=== PATIENT | male | born 1965 | race Caucasian/White ===

== ENCOUNTER 2017-01-28 14:31 | Inpatient (IN) | payer BC ==
[2017-01-15 11:12] LABS: BASOPHILS 0.9 %; BASOPHILS ABSOLUTE 0.06 10/3/uL (0.0-0.16); EOSINOPHILS 2.5 %; EOSINOPHILS ABSOLUTE 0.17 10/3/uL (0.0-0.53); HEMOGLOBIN 14.3 g/dL (13.6-17.8); IMMATURE GRANULOCYTES 0.1 %; IMMATURE GRANULOCYTES ABSOLUTE 0.01 10/3/uL (0.0-0.11); LYMPHOCYTES 22.8 %; LYMPHOCYTES ABSOLUTE 1.54 10/3/uL (0.67-4.30); MANUAL DIFF NO %; MEAN CORPUS HGB CONC 33.3 g/dL (32.0-36.0); MEAN CORPUSCULAR HEMOGLOB 29.3 pg (26.0-34.0); MEAN CORPUSCULAR VOLUME 88.1 fL (80-100); MEAN PLATELET VOLUME 9.7 fL (9.2-13.0); MONOCYTES ABSOLUTE 0.54 10/3/uL (0.21-1.20); NEUTROPHILS 65.7 %; NEUTROPHILS ABSOLUTE 4.44 10/3/uL (2.02-8.40); PLATELET COUNT 263 10/3/uL (150-400); RBC DISTRIBUTION WIDTH 12.4 % (12.0-16.0); RED CELL COUNT 4.88 10/6/uL (4.7-6.1); WHITE BLOOD CELLS 6.8 10/3/uL (4.5-10.5)
[2017-01-15 11:29] LABS: ASCORBIC ACID (UR NOT ORDER) NEG (NEG); BILIRUBIN, URINE NEGATIVE (NEG); KETONE, URINE NEGATIVE (NEG); LEUKOCYTE ESTERASE(NOT OR NEG (NEG); WBC (NOT ORDERED) (RFLEX) < 1 (0-5)
[2017-01-15 11:41] LABS: A/G RATIO 1.2 (0.7-1.9); ALKALINE PHOSPHATASE 66 U/L (45-117); BUN (BLOOD UREA NITROGEN) 10 MG/DL (6-23); CALCIUM, SERUM 9.4 MG/DL (8.5-10.4); CHLORIDE, SERUM 102 MMOL/L (96-112); CO2 (CARBON DIOXIDE) 33 MMOL/L (24-34); CREATININE 1.04 MG/DL (0.70-1.30); GFR AFRICAN AMERICAN 96 ML/MIN (>=60); GFR NON AFRICAN AMERICAN 83 ML/MIN (>=60); GLOBULIN 3.3 G/DL (2.5-4.1); GLUCOSE, SERUM 84 MG/DL (60-99); POTASSIUM, SERUM 3.7 MMOL/L (3.5-5.3); SGOT(AST) 13 U/L (5-40); SGPT(ALT) 19 U/L (5-65); SODIUM, SERUM 138 MMOL/L (135-148); TOTAL BILIRUBIN 0.3 MG/DL (0-1.2); TOTAL PROTEIN 7.3 G/DL (6.0-8.5)
--- NOTE | ~2017-01-28 | OP ---
Record Of Operation [facility] [address] [place]. 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 PROCEDURE: Left total knee revision arthroplasty. SURGEON: Deisre Bah M.D. SURGICAL ENDOSCOPIST: See chart. DETAILS OF PROCEDURE: The patient was taken to the operating room and placed supine on the table in normal fashion without incident. General anesthetic was induced per the anesthesiologist. The patient was carefully positioned, padded, prepped, and draped in normal sterile fashion. Left lower extremity exsanguinated, tourniquet inflated to 350. Sharp dissection was made through the old incision with electrocautery through the fat. Sharp quad splitting approach was carried out. Patella was subluxed. Benign-appearing fluid was sent for cultures and Gram stain. The patella appeared to be significantly malpositioned and was almost completely covered in scar tissue and was very thick measuring right at 30 mm thick with a prosthesis in place. The knee appeared to be in valgus angulation. The femoral component was easily removed with significant lysis behind the distal aspect on both sides. There was some cement around the stem in the canal. The tibial component was somewhat oversized and was easily removed with flexible osteotome. The cement was meticulously debrided. Sequential reamers were used in the femur and tibia to an 18. Intramedullary guides were used to cut the proximal tibia and distal femur. Ruler verified flexion and extension balance. The remaining cuts were made in the distal femur with intramedullary guide with trial components in place. There was excellent medial and lateral balance. The patella was recut with an oscillating saw and cut much thinner down to more normal thickness. I redrilled with the patella drill guide, now with an appropriately sized patella that gave excellent coverage. There was excellent patellar tracking. All surfaces were copiously irrigated with pulsatile lavage. Vacuum-mixed cement premixed with antibiotic was pressurized in a doughy phase in the tibia. The tibial component placed, impacted, and excess cement removed. Cement was pressurized in the femur and placed on the posterior runners of the femoral component, which was placed, impacted, and excess cement removed. The knee was brought out to extension on a trial spacer. Cement was pressurized in the patella. Patellar component placed, held with a clamp, and excess cement removed. Once all cement was hardened, the knee was taken through range of motion. Further extruded cement was removed with a small osteotome. The actual insert was then placed, impacted, checked to be sure it was sound and snug. The knee was closed in a layered fashion over medium ConstaVac drain superolaterally. The wound was dressed sterilely. The patient was awakened and taken to the postanesthesia care unit without incident. COMPLICATIONS: None. Record Of Operation [address] [address] NAME: GARCIA MATHEW : 65 STATUS : ADM IN [facility]#: [id number] AGE: 51 ADM/REG DATE : 01/28/17 MR#: [id number] REPORT SERV DATE: 01/30/17 DICTATED BY: GHAZAL BAH DATE: 01/29/17 REPORT STATUS : Draft TRANSCRIBED BY: PAMELA DATE: 01/29/17 SPECIMENS: Removed components and cultures. ESTIMATED BLOOD LOSS: About 10 mL. WTB/PAMELA Desire Bah M.D. / [id number] CC: Desire Bah M.D.
--- NOTE | ~2017-01-28 | DS ---
Discharge Summary [facility] [address] [place]. 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 CONSULTATIONS: None. PROCEDURES PERFORMED: Left total knee revision arthroplasty, 01/28/2017. PATHOLOGY: Bone, soft tissue, and surgical hardware, left knee arthroplasty-osteopenic bone, surgical hardware (see gross description). No infection or neoplasm. MEDICATIONS: Flexeril 10 mg every eight hours as needed, Roxicodone 15 mg every four to six hours as needed, Ultram 50 mg every six hours as needed, and Coumadin 5 mg daily. CONDITION AT DISCHARGE: Stable. DISPOSITION: The patient was discharged home to be followed by home health care on a regular diet with activities as instructed. He would follow up with me, 02/11/2017. HOSPITAL COURSE: This is a 51-year-old man, who complained of severe constant left knee pain for about six months as well as left hip pain. The patient said he had done well after a left total knee arthroplasty and then developed the pain approximately six months prior to this admission. He said the pain was not due to an accident or injury. He had undergone left total knee arthroplasty [place] [address] Des[place] in [place]. X-rays had revealed failed left total knee arthroplasty. Treatment options were discussed and it was elected to proceed with surgical intervention. He was admitted to the hospital at this time for further evaluation and treatment. Upon admission, he was taken to the operating room, where he underwent the above-mentioned procedure. He tolerated this well and there were no complications. On postop day one, he was resting quietly. He was requesting home health care because he lives alone. LAURA hose were in place. He was evaluated by Occupational and Physical Therapy. On postop day two, he was up sitting in a bedside chair. INR level was 1.8. He was encouraged to mobilize with Physical Therapy. Over the next couple of days, he continued to progress. He said he had not slept well because of pain. He had received IV morphine during the night. Discharge planning continued. On 02/01/2017, he had been ambulating in the cantu. Discharge instructions were given. Due to his improved and stable condition, he was discharged home to be followed by home health care with the above stated instructions. Information collected by: Krystin Cloud I submit the above information as my discharge summary. NICHOLAS/PAMELA Desire Molina M.D. Discharge Summary [address] [address] NAME: GARCIA MATHEW : 65 STATUS : DIS IN PAT#: [id number] AGE: 51 ADM/REG DATE : 01/28/17 MR#: [id number] REPORT SERV DATE: 02/12/17 DICTATED BY: GHAZAL MOLINA DATE: 02/11/17 REPORT STATUS : Draft TRANSCRIBED BY: PAMELA DATE: 02/11/17 / [id number] CC: Desire Molina M.D.
[~2017-01-28 14:31] MED LIST: ULTRAM50 PO; Z100 PO
[2017-01-29 04:52] LABS: HEMOGLOBIN 11.9 g/dL (13.6-17.8)
[2017-01-29 04:56] LABS: INTERNATIONAL NORMAL RATI 1.1 UNITS (-); PROTIME (NOT ORD) 14.5 SEC (12.0-14.5)
[2017-01-29 05:01] LABS: HEMATOCRIT 35.4 % (40.0-51.0)
[2017-01-29 05:06] LABS: BUN (BLOOD UREA NITROGEN) 11 MG/DL (6-23); CALCIUM, SERUM 8.6 MG/DL (8.5-10.4); CHLORIDE, SERUM 104 MMOL/L (96-112); CREATININE 1.06 MG/DL (0.70-1.30); GFR AFRICAN AMERICAN 94 ML/MIN (>=60); GFR NON AFRICAN AMERICAN 81 ML/MIN (>=60); SODIUM, SERUM 138 MMOL/L (135-148)
[2017-01-29 05:10] LABS: CO2 (CARBON DIOXIDE) 28 MMOL/L (24-34); GLUCOSE, SERUM 159 MG/DL (60-99); POTASSIUM, SERUM 4.9 MMOL/L (3.5-5.3)
[2017-01-30 08:17] LABS: HEMOGLOBIN 10.1 g/dL (13.6-17.8)
[2017-01-30 08:18] LABS: INTERNATIONAL NORMAL RATI 1.8 UNITS (-)
[2017-01-30 08:19] LABS: HEMATOCRIT 29.7 % (40.0-51.0); PROTIME (NOT ORD) 20.7 SEC (12.0-14.5)
[2017-01-31 06:13] LABS: HEMATOCRIT 31.1 % (40.0-51.0); HEMOGLOBIN 10.4 g/dL (13.6-17.8)
[2017-01-31 06:20] LABS: INTERNATIONAL NORMAL RATI 1.8 UNITS (-); PROTIME (NOT ORD) 20.3 SEC (12.0-14.5)
[2017-02-01 04:46] LABS: INTERNATIONAL NORMAL RATI 1.6 UNITS (-); PROTIME (NOT ORD) 18.8 SEC (12.0-14.5)
[2017-02-01] MEDS ORDERED: FLEX PO (10:10)
[2017-02-01] MEDS ORDERED: C5 PO (10:10)
[2017-02-01] MEDS ORDERED: ROXICODONE15 MG PO (10:10)
== END 2017-02-01 14:01 | disposition home health service (06) | DRG 467 ==
LOC: SDC/OF 14:31 → PACU 22:01 → 3SO 23:11
PROVIDERS: Specialist
PROC: 0SPD0JZ Removal of Synthetic Substitute from Left Knee Joint, Open Approach (ICD-10-PCS; 2017-01-28)
PROC: 0SRD0J9 Replacement of Left Knee Joint with Synthetic Substitute, Cemented, Open Approach (ICD-10-PCS; principal; 2017-01-28 16:45)
DX: T84.093A Other mechanical complication of internal left knee prosthesis, initial encounter (principal); D62 Acute posthemorrhagic anemia
CPT/HCPCS: 36415; 71020; 80048; 80053; 81001; 85014; 85018; 85025; 85610; 86850; 86900; 86901; 87015; 87070; 87075; 87102; 87116; 87205; 87641; 88300; 88304; 88311; 93005; 97110-GP; 97116-GP; 97161-GP; 97165-GO; A9270-GY; C1776; J0690; J1170; J1885; J2250; J2274; J2405; J2710; J2795; J3010